=== PATIENT | female | born 1950 | race Caucasian/White ===

== ENCOUNTER 2016-11-04 09:29 | Inpatient (IN) | payer OTHER ==
--- NOTE | ~2016-11-04 | OR ---
Unit #: [id number] #: [id number] Patient: VIDAL ALAS [id number] [address] [address] [id number] I MR#: [id number] NAME: VIDAL ALAS ROOM: [facility] Date of Procedure: 11/04/2016 Admission Date: 11/04/2016 Surgeon: Walter Humphrey M.D. : 1950 Attending Physician: Sal Whitten M.D. Primary Care Physician: Terry Stark M.D. OPERATIVE REPORT PREOPERATIVE DIAGNOSIS Bimalleolar ankle fracture, right ankle with ankle dislocation. POSTOPERATIVE DIAGNOSIS Bimalleolar ankle fracture, right ankle with ankle dislocation. PROCEDURE PERFORMED Open reduction and internal fixation of right ankle. MARINE EQUIPMENT PRESERVATION INSPECTOR Nils Arias. ANESTHESIA Ankle block plus general. ESTIMATED BLOOD LOSS About 100 to 150 mL. DESCRIPTION OF PROCEDURE The patient was brought to the operating room, given 2 g of Kefzol. This will be continued postop. She was given an ankle block and then brought back to the operating room, given a general anesthetic. Tourniquet was placed around the right thigh. The right leg was prepped and draped. Tourniquet inflated to 300. A straight lateral skin incision was made. The subcutaneous dissected away and the fracture came into view. This was reduced and then an 8-hole 1/3 semi-tubular Synthes plate was placed on the fibula and the 3.5 cortical screws were positioned. C-arm showed appropriate reduction of the mortise and the fractures. We then made an incision on the medial side and placed two 4-0 cancellous screws, 40 mm in length, partially-threaded to hold the medial malleolar fragment reduce. The tourniquet was released. Hemostasis was obtained. The wounds were irrigated out and then closed using 0 Vicryl in the subcutaneous and radhika in the skin. Sterile dressing was applied and a posterior splint was positioned with the foot in dorsiflexion. Dictated by... Glenna Ortiz/harshil TD: 11/05/2016 13:18 Unit #: [id number] #: [id number] Patient: VIDAL ALAS JOB #: [id number] OPERATIVE REPORT X Walter Humphrey MD PROCEDURE OPERATIVE NOTE
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
--- NOTE | ~2016-11-04 | CR18 ---
[facility] A Service of [facility] RADIOLOGY TEXT RESULTS PATIENT: VIDAL ALAS LOCATION: B 449-01 : [birth year] UNIT #: [id number] AGE: [address]: Melany Jolly MD SEX: F ORDER DR: [id number] [facility] [address] [place], [place] [address] [id number] I MR#: [id number] Acc #: [id number] NAME: VIDAL ALAS. : 1950 SEX: F STUDY DATE/TIME: 11/04/2016 15:49 UNIT: [facility] ROOM: [facility] STUDY DESCRIPTION: CR Ankle 2 Views Rt Attending Physician: Guillermina Potter M.D. Ordering Physician: Walter Humphrey M.D. Primary Care Physician: Terry Stark M.D. MEDICAL IMAGING REPORT This report is preliminary unless electronic signature is present EXAM Intraoperative radiographs of the right ankle 3 views HISTORY Open reduction internal fixation of trimalleolar fracture. FINDINGS 3 C-arm images were obtained during open reduction internal fixation. Total fluoroscopy time was 20 seconds. Details of the procedure can be found in Dr. Humphrey's notes. Dictated by... Jimmy Washburn M.D. THIS IS AN ELECTRONICALLY VERIFIED REPORT Jimmy Washburn M.D. at 11/08/2016 5:10 PM Paulina TD: 11/05/2016 07:35 JOB #: [id number] MEDICAL IMAGING REPORT Page 1 of 1 COPY
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
--- NOTE | ~2016-11-04 | EKG ---
PATIENT: VIDAL ALAS UNIT #: [id number] Ventricular Rate: 99 BPM Atrial Rate: 99 BPM P-R Interval: 156 ms QRS Duration: 92 ms Q-T Interval: 386 ms QTC Calculation(Bezet): 495 ms P [place]: 25 degrees Calculated R [place]: -39 degrees Calculated T [place]: -4 degrees Diagnosis Line: Normal sinus rhythm Diagnosis Line: Left axis deviation Diagnosis Line: Nonspecific ST and T wave abnormality Diagnosis Line: Abnormal ECG Diagnosis Line: When compared with ECG of 30-JAN-2016 10:48, Diagnosis Line: Nonspecific T wave abnormality no longer evident Diagnosis Line: in Lateral leads Diagnosis Line: QT has lengthened Diagnosis Line: Confirmed by IAN DE LA TORRE, KRUT ([id number]) on 11/06/2016 Diagnosis Line: 7:38:18 AM INTERPRETING MD: IAN DE LA TORRE
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
--- NOTE | ~2016-11-04 | DS ---
Unit #: [id number] #: [id number] Patient: VIDAL ALAS [id number] [address] [address] [id number] I MR#: [id number] NAME: VIDAL ALAS. ROOM: [facility] Age: 66 Sex: F Admission Date: 11/04/2016 : 1950 Discharge Date: 11/08/2016 Attending Physician: Melany Jolly M.D. Primary Care Physician: Terry Stark M.D. DISCHARGE SUMMARY ADDENDUM HOSPITAL COURSE Patient remained in the hospital while arranging rehab. I will note that she is having recurrent nocturnal hypoxia and likely has underlying obstructive sleep apnea. She would benefit from a sleep study as an outpatient. I have instructed her to follow up with Dr. Gimenez regarding this. I also note her thrombocytopenia on the day of discharge is stable. Her discharge platelet count is 102,000. This thrombocytopenia may be worked up as an outpatient. Dictated by... Melany Jolly M.D. SKIP/tony TD: 11/08/2016 16:22 JOB #: [id number] DISCHARGE SUMMARY X Melany Jolly MD X DISCHARGE SUMMARY
[2016-11-04 09:15] LABS: BASOPHIL% 0.4 % (0-2.5); EOSINOPHIL% 0.9 % (0.0-7.0); HEMATOCRIT 40.7 % (35.0-45.0); HEMOGLOBIN 13.6 gm/dL (12.0-16.0); LYMPHOCYTE# 1.2 X10e3 (1.0-3.5); LYMPHOCYTE% 23.7 % (17.0-45.0); MEAN CELL VOLUME 118.7 FL (83-96); MEAN CORPUSCULAR HEMOGLOBIN 39.5 PG (28-34); MEAN CORPUSCULAR HGB CONC 33.3 g/dL (30-36); MEAN PLATELET VOLUME 10.4 FL (6.5-11.5); MONOCYTE# 0.2 X10e3 (0-1.0); MONOCYTE% 4.1 % (3.0-12.0); NEUTROPHIL# 3.7 X10e3 (1.5-7.1); NEUTROPHIL% 70.9 % (40-75); PLATELET COUNT 105 X10e3 (140-420); RED BLOOD COUNT 3.43 X10e (3.90-5.30); RED CELL DISTRIBUTION WIDTH 15.5 % (11.0-15.5); WHITE BLOOD COUNT 5.3 X10e3 (4.0-10.5)
[2016-11-04 09:16] LABS: DIFF IND YES
[~2016-11-04 09:29] MED LIST: AMLODIPINE BESYL5 MG PO; BENADRYL25 MG PO; BENTYL20 MG PO; COREG PO; COREG3.125 MG PO; FIORICET1 TAB PO; HYDROCHLOROTHIAZIDE PO; LIORESAL10 MG PO; LOMOTIL TABLET1 TAB PO; NITROGLYCERIN0.4 MG SL; NITROSTAT0.4 MG SL; NO MEDICATIONS; NORVASC PO; PERCOCET7.5 PO; SERTRALINE HCL25 M1 PO; SYNTHROID; SYNTHROID PO; SYNTHROID0.05 MG PO; SYNTHROID0.1 MG PO; ZOFRANODT PO; ZOLOFT PO
[2016-11-04 09:38] LABS: ALBUMIN SERUM 3.8 g/dL (3.5-5.0); ALKALINE PHOSPHATASE 77 U/L (32-92); ALT (SGPT) 19 U/L (10-40); AST (SGOT) 32 U/L (10-42); BILIRUBIN, DIRECT 0.4 mg/dL (0.0-0.2); BILIRUBIN,INDIRECT 1.2 mg/dL (0.0-0.9); BILIRUBIN,TOTAL 1.6 mg/dL (0.2-2.0); BLOOD UREA NITROGEN 14 mg/dL (9-23); BUN/CREATININE RATIO 23.33; CALCIUM SERUM 8.9 mg/dL (8.4-10.2); CARBON DIOXIDE 24 mmol/L (22-31); CHLORIDE 112 mmol/L (100-111); CREATININE SERUM 0.6 mg/dL (0.6-1.4); GLOM FILT RATE Estimated ABOVE60 mL/min (>60); GLUCOSE FASTING 140 mg/dL (70-110); POTASSIUM 3.9 mmol/L (3.5-5.1); PROTEIN TOTAL SERUM 7.1 g/dL (6.0-8.3); SODIUM 143 mmol/L (135-145)
[2016-11-04 09:46] LABS: ANISOCYTOSIS SL; PLATELET ESTIMATE NORMAL (NORMAL)
[2016-11-04] MEDS ORDERED: NO MEDICATIONS (12:44)
[2016-11-04 13:12] LABS: INR 1.1; PROTHROMBIN TIME (PATIENT) 11.7 SECONDS (9.6-11.5)
[2016-11-05 03:12] LABS: HEMATOCRIT 33.3 % (35.0-45.0); HEMOGLOBIN 11.2 gm/dL (12.0-16.0); MEAN CELL VOLUME 117.5 FL (83-96); MEAN CORPUSCULAR HEMOGLOBIN 39.5 PG (28-34); MEAN CORPUSCULAR HGB CONC 33.6 g/dL (30-36); RED BLOOD COUNT 2.83 X10e (3.90-5.30); RED CELL DISTRIBUTION WIDTH 15.7 % (11.0-15.5); WHITE BLOOD COUNT 6.6 X10e3 (4.0-10.5)
[2016-11-05 03:21] LABS: INR 1.1; PROTHROMBIN TIME (PATIENT) 11.9 SECONDS (9.6-11.5)
[2016-11-05 03:32] LABS: ALBUMIN SERUM 3.5 g/dL (3.5-5.0); ALKALINE PHOSPHATASE 60 U/L (32-92); ALT (SGPT) 17 U/L (10-40); AST (SGOT) 33 U/L (10-42); BILIRUBIN,TOTAL 1.8 mg/dL (0.2-2.0); BLOOD UREA NITROGEN 17 mg/dL (9-23); BUN/CREATININE RATIO 28.33; CARBON DIOXIDE 25 mmol/L (22-31); CHLORIDE 109 mmol/L (100-111); CREATININE SERUM 0.6 mg/dL (0.6-1.4); GLOM FILT RATE Estimated ABOVE60 mL/min (>60); GLUCOSE FASTING 149 mg/dL (70-110); POTASSIUM 3.9 mmol/L (3.5-5.1); PROTEIN TOTAL SERUM 6.2 g/dL (6.0-8.3); SODIUM 133 mmol/L (135-145)
[2016-11-05 08:48] LABS: URINE SOURCE CLEAN CATCH
[2016-11-05 08:55] LABS: URINE APPEARANCE CLEAR; URINE BLOOD NEG (NEG); URINE COLOR ORANGE; URINE GLUCOSE NEG (NEG); URINE KETONE TRACE (NEG); URINE LEUKOCYTE ESTERASE TRACE (NEG); URINE NITRATE POS (NEG); URINE PH 5.5 (5-8); URINE PROTEIN TRACE (NEG); URINE SPECIFIC GRAVITY 1.045 (1.003-1.035)
[2016-11-05 08:57] LABS: URINE BACTERIA AUWI NEG (NEGATIVE); URINE SQUAMOUS EPITHELIAL CELL FEW /[HPF]; UWBCS1 AUWI 0-2 (0-5)
[2016-11-05 09:01] LABS: CULTURE INDICATED? NO; URINE BILIRUBIN NEG (NEG)
[2016-11-06 04:19] LABS: BLOOD UREA NITROGEN 25 mg/dL (9-23); BUN/CREATININE RATIO 31.25; CALCIUM SERUM 8.2 mg/dL (8.4-10.2); CARBON DIOXIDE 27 mmol/L (22-31); CHLORIDE 108 mmol/L (100-111); CREATININE SERUM 0.8 mg/dL (0.6-1.4); GLOM FILT RATE Estimated ABOVE60 mL/min (>60); GLUCOSE FASTING 120 mg/dL (70-110); MAGNESIUM 1.9 mg/dL (1.6-3.0); POTASSIUM 3.9 mmol/L (3.5-5.1); SODIUM 137 mmol/L (135-145)
[2016-11-07 04:37] LABS: BASOPHIL% 0.5 % (0-2.5); EOSINOPHIL# 0.1 X10e3 (0-0.7); HEMATOCRIT 32.7 % (35.0-45.0); LYMPHOCYTE# 2.2 X10e3 (1.0-3.5); LYMPHOCYTE% 38.8 % (17.0-45.0); MEAN CELL VOLUME 118.7 FL (83-96); MEAN CORPUSCULAR HEMOGLOBIN 39.8 PG (28-34); MEAN CORPUSCULAR HGB CONC 33.5 g/dL (30-36); MONOCYTE# 0.4 X10e3 (0-1.0); MONOCYTE% 6.2 % (3.0-12.0); NEUTROPHIL% 52.5 % (40-75); RED BLOOD COUNT 2.75 X10e (3.90-5.30); RED CELL DISTRIBUTION WIDTH 15.1 % (11.0-15.5); WHITE BLOOD COUNT 5.6 X10e3 (4.0-10.5)
[2016-11-07 04:39] LABS: DIFF IND YES; PLATELET COUNT 84 X10e3 (140-420)
[2016-11-07 04:46] LABS: PLATELET ESTIMATE DECREASED (NORMAL)
[2016-11-08 03:30] LABS: BASOPHIL% 0.2 % (0-2.5); EOSINOPHIL# 0.2 X10e3 (0-0.7); EOSINOPHIL% 2.9 % (0.0-7.0); HEMATOCRIT 31.7 % (35.0-45.0); HEMOGLOBIN 10.6 gm/dL (12.0-16.0); LYMPHOCYTE% 37.9 % (17.0-45.0); MEAN CELL VOLUME 119.8 FL (83-96); MEAN CORPUSCULAR HEMOGLOBIN 39.8 PG (28-34); MEAN CORPUSCULAR HGB CONC 33.3 g/dL (30-36); MEAN PLATELET VOLUME 9.9 FL (6.5-11.5); MONOCYTE# 0.3 X10e3 (0-1.0); MONOCYTE% 5.9 % (3.0-12.0); NEUTROPHIL# 2.9 X10e3 (1.5-7.1); NEUTROPHIL% 53.1 % (40-75); PLATELET COUNT 102 X10e3 (140-420); RED BLOOD COUNT 2.65 X10e (3.90-5.30); RED CELL DISTRIBUTION WIDTH 15.4 % (11.0-15.5); WHITE BLOOD COUNT 5.4 X10e3 (4.0-10.5)
[2016-11-08 03:32] LABS: DIFF IND NO
== END 2016-11-09 09:49 | DRG 493 ==
LOC: CED 09:29 → CEDOF 11:55 → C2A 14:48 → C4B 18:19
PROVIDERS: Emergency Medicine; Family Medicine; Internal Medicine; Nurse Practitioner; Orthopaedic Surgery
PROC: 0QSJ04Z Reposition Right Fibula with Internal Fixation Device, Open Approach (ICD-10-PCS; 2016-11-04)
PROC: 0QSG04Z Reposition Right Tibia with Internal Fixation Device, Open Approach (ICD-10-PCS; 2016-11-04)
PROC: 0HQ0XZZ Repair Scalp Skin, External Approach (ICD-10-PCS; principal; 2016-11-04 16:00)
DX: S82.851A Displaced trimalleolar fracture of right lower leg, initial encounter for closed fracture (principal); E87.1 Hypo-osmolality and hyponatremia; D69.6 Thrombocytopenia, unspecified; Z68.42 Body mass index [BMI] 45.0-49.9, adult; D62 Acute posthemorrhagic anemia; Z90.710 Acquired absence of both cervix and uterus; Z90.49 Acquired absence of other specified parts of digestive tract; I10 Essential (primary) hypertension; I25.10 Atherosclerotic heart disease of native coronary artery without angina pectoris; E66.01 Morbid (severe) obesity due to excess calories; G47.00 Insomnia, unspecified; G43.909 Migraine, unspecified, not intractable, without status migrainosus; S01.01XA Laceration without foreign body of scalp, initial encounter; V43.52XA Car driver injured in collision with other type car in traffic accident, initial encounter; Y92.410 Unspecified street and highway as the place of occurrence of the external cause; F32.9 Major depressive disorder, single episode, unspecified; Z82.49 Family history of ischemic heart disease and other diseases of the circulatory system
CPT/HCPCS: 12002; 29515; 70450; 71010; 72170; 73600; 73610; 73630; 76000; 80048; 80053; 80076; 81003; 82947; 83735; 85025; 85027; 85610; 87086; 90471; 90715; 93005; 94760; 97116; 97163; 97530; 99285; C1713; C1776; G8978-GP; G8979-GP; G8980-GP; J0330; J0690; J1100; J1170; J1650; J1885; J2250; J2270; J2405; J3010